=== PATIENT | male | born 1935 | race Caucasian/White ===

== ENCOUNTER 2024-09-20 09:36 | Emergency (ER) | payer OTHER, SELFPAY ==
[2024-09-20 09:39] VITALS: BP 151/67; PULSE 63; TEMP 36.6; O2SAT 96; BMI 30.9
--- NOTE | 2024-09-20 09:41 | XR_ITS ---
The [address] [address] Patient Name: ROSEMARY RIVERA MRN: [id number] date: 1935 Sex: M Assigned Patient Location: ED.MAIN Current Patient Location: ED.MAIN Accession/Order Number: [id number] Exam Date: 09/20/2024 10:11 Report Date: 09/20/2024 10:16 At the request of: JACK WILKINSON MD Procedure: XR lumbar spine 2-3V CLINICAL HISTORY: Patient fell yesterday landing on buttocks. Back and tailbone pain. LUMBAR SPINE - 2 views COMPARISON: None AP and lateral views were obtained. There is osteopenia. No acute lumbar compression fractures are identified. There is compression deformity at the superior endplate of T12. There is minor retropulsion at the posterior superior endplate of that vertebra. There is slight disc space narrowing at the lumbosacral junction. The remaining disc spaces are maintained. There are small endplate spurs. There is mild lower lumbar facet hypertrophy. The SI joints are intact. There is atherosclerotic plaque at the aorta and iliac arteries. XR/XR sacrum coccyx min 2V IMPRESSION: OSTEOPENIA AND MILD DEGENERATIVE CHANGES. T12 COMPRESSION FRACTURE. THERE ARE NO PRIORS TO DETERMINE CHRONICITY. CORRELATION IS THEREFORE RECOMMENDED. SACRUM AND COCCYX -3 VIEWS COMPARISON: None Lateral as well as AP views in upward and downward projection were obtained. There is osteopenia which slightly limits evaluation. No definite acute fracture or displacement is identified. The SI joints and sacral foramen appear intact. No soft tissue abnormalities are seen. IMPRESSION: OSTEOPENIA. NO ACUTE BONY INJURY. Impression dictated by: Pat Kraft M.D. 09/20/2024 10:16 AM Dictation Location: [place] [address] Electronically authenticated by: [id number] Y Date: 09/20/2024 10:16
--- NOTE | 2024-09-20 09:41 | XR_ITS ---
The [address] [address] Patient Name: ROSEMARY RIVERA MRN: [id number] date: 1935 Sex: M Assigned Patient Location: ED.MAIN Current Patient Location: ED.MAIN Accession/Order Number: [id number] Exam Date: 09/20/2024 10:11 Report Date: 09/20/2024 10:16 At the request of: JACK WILKINSON MD Procedure: XR lumbar spine 2-3V CLINICAL HISTORY: Patient fell yesterday landing on buttocks. Back and tailbone pain. LUMBAR SPINE - 2 views COMPARISON: None AP and lateral views were obtained. There is osteopenia. No acute lumbar compression fractures are identified. There is compression deformity at the superior endplate of T12. There is minor retropulsion at the posterior superior endplate of that vertebra. There is slight disc space narrowing at the lumbosacral junction. The remaining disc spaces are maintained. There are small endplate spurs. There is mild lower lumbar facet hypertrophy. The SI joints are intact. There is atherosclerotic plaque at the aorta and iliac arteries. XR/XR lumbar spine 2-3V IMPRESSION: OSTEOPENIA AND MILD DEGENERATIVE CHANGES. T12 COMPRESSION FRACTURE. THERE ARE NO PRIORS TO DETERMINE CHRONICITY. CORRELATION IS THEREFORE RECOMMENDED. SACRUM AND COCCYX -3 VIEWS COMPARISON: None Lateral as well as AP views in upward and downward projection were obtained. There is osteopenia which slightly limits evaluation. No definite acute fracture or displacement is identified. The SI joints and sacral foramen appear intact. No soft tissue abnormalities are seen. IMPRESSION: OSTEOPENIA. NO ACUTE BONY INJURY. Impression dictated by: Pat Kraft M.D. 09/20/2024 10:16 AM Dictation Location: [place] [address] Electronically authenticated by: [id number] Y Date: 09/20/2024 10:16
--- NOTE | 2024-09-20 09:41 | ECG_ITS ---
The [facility] Test Date: 2024-09-20 Pat Name: ROSEMARY RIVERA Department: Room: - Gender: Male Crime Scene Analyst: : 1935 Requested By: [id number] Order Number: [id number] Reading MD: FREDI NUÑEZ M.D. Measurements Intervals [place] Rate: 61 P: -[id number] MD: -[id number] QRS: -85 QRSD: 150 T: 55 QT: 432 QTc: 435 Interpretive Statements AV SEQUENTIAL OR DUAL CHAMBER ELECTRONIC PACEMAKER Abnormal ECG No previous ECG available for comparison Electronically Signed On 09-21-2024 18:21:58 EDT by FREDI NUÑEZ M.D.
--- NOTE | 2024-09-20 09:42 | ED.GENADUL1 ---
HPI HPI - General Adult General Chief complaint: Back Pain/Injury Stated complaint: BACK PAIN Time Seen by Provider: 09/20/24 09:38 History of Present Illness HPI narrative: 88-year-old male presents because he had trouble getting out of bed today. He called the paramedics and they brought him here. He states he could not get out of bed because of his lower back pain. He fell yesterday and landed on his buttocks. He fell because he was trying to kill a bug with his foot and lost his balance. He landed on his buttocks and not his back and he did not hit his head. He was able to get himself up yesterday and have a normal day. There was no subsequent injury. Related Data Home Medications ?Medication ?Instructions ?Recorded ?Confirmed acetaminophen 500 mg tablet 500 mg PO TID PRN fever or pain 09/20/24 09/20/24 (Tylenol Extra Strength) ascorbic acid (vitamin C) 500 mg 500 mg PO DAILY 09/20/24 09/20/24 capsule atorvastatin 80 mg tablet 40 mg PO DAILY 09/20/24 09/20/24 diclofenac sodium 1 % topical gel 2 g topical BID PRN pain in knees 09/20/24 09/20/24 (Arthritis Pain (diclofenac)) dorzolamide 22.3 mg-timolol 6.8 1 drp ophthalmic (eye) BID 09/20/24 09/20/24 mg/mL eye drops ferrous sulfate 325 mg (65 mg 325 mg PO DAILY 09/20/24 09/20/24 iron) tablet glipizide 10 mg tablet 20 mg PO BID 09/20/24 09/20/24 latanoprost 0.005 % eye drops, 1 drp ophthalmic (eye) DAILY 09/20/24 09/20/24 emulsion lidocaine HCl topical TID PRN feet pain 09/20/24 lisinopril 20 1 tab PO DAILY 09/20/24 09/20/24 mg-hydrochlorothiazide 12.5 mg tablet pioglitazone 45 mg tablet (Actos) 45 mg PO DAILY 09/20/24 09/20/24 tamsulosin 0.4 mg capsule (Flomax) 0.4 mg PO DAILY 09/20/24 09/20/24 Allergies Allergy/AdvReac Type Severity Reaction Status Date / Time No Known Drug Allergies Allergy Verified 09/20/24 09:43 Opioid HPI Opioid Management Most Recent Opioid Data: Last Pain Scale 7 Today, 09:39 Review of Systems ROS Narrative A ten point review of systems is negative except as noted above. PFSH PFSH Social History Little interest or pleasure in doing things: not at all Feeling down, depressed, or hopeless: not at all Exam Narrative Exam Narrative: Nurses note and vital signs reviewed and patient is not hypoxic. General: The patient appears in no apparent distress. Skin: Warm, dry, no pallor noted. There is no rash noted. Head: Normocephalic, atraumatic Eye: Normal conjunctiva, no drainage Ears, Nose, Mouth, and Throat: oral mucosa is moist. Nares patent. Cardiovascular: Regular Rate and Rhythm Respiratory: Patient is in no distress, no accessory muscle use, lungs are clear to auscultation, no wheezing, rales or rhonchi Back: No bruise or abrasion. He has no focal area of tenderness to palpation. GI: Soft and nontender Musculoskeletal: He has a few small bruises on his right arm but wrist elbow and shoulder have full range of motion and there is no tenderness. Neurological: A&O, normal speech Psychiatric: Cooperative Constitutional Vital Signs, click to edit/add: Last Vital Signs Temp 98 F 09/20/24 09:39 Pulse 63 09/20/24 09:39 Resp 18 09/20/24 09:39 BP 151/67 H 09/20/24 09:39 Pulse Ox 96 09/20/24 09:39 O2 Del Method Room Air 09/20/24 09:39 Course Vital Signs Vital signs: Vital Signs Temperature 98 F 09/20/24 09:39 Pulse Rate 63 09/20/24 09:39 Respiratory Rate 18 09/20/24 09:39 Blood Pressure 151/67 H 09/20/24 09:39 Pulse Oximetry 96 09/20/24 09:39 Oxygen Delivery Method Room Air 09/20/24 09:39 Temperature 98 F 09/20/24 09:39 Pulse Rate 63 09/20/24 09:39 Respiratory Rate 18 09/20/24 09:39 Blood Pressure 151/67 H 09/20/24 09:39 Pulse Oximetry 96 09/20/24 09:39 Oxygen Delivery Method Room Air 09/20/24 09:39 Medical Decision Making MDM Narrative Medical decision making narrative: T12 compression fracture is identified. No previous x-rays are available for comparison. He is having difficulty walking. I spoke to Dr. Dutta and we have agreed that the patient would be transferred to [facility] where they have orthopedics. Treatment diagnosis and disposition were discussed with the patient and his family and they are agreeable and the patient is stable for transfer. I spoke to Dr. Lujan, hospitalist at [facility], as well as their neurosurgeon and the patient is excepted there. Differential Diagnosis Differential Diagnosis: Contusion, fracture Lab Data Lab results reviewed: Yes I reviewed the patient's lab results Labs: Lab Results 09/20/24 Range/Units 10:12 WBC 8.6 (4.0-11.0) 10^3/uL RBC 4.01 L (4.70-6.10) 10^6/uL Hgb 12.4 L (14.0-18.0) g/dL Hct 37.7 L (42.0-54.0) % MCV 94.0 (80.0-94.0) fL MCH 30.9 (25.9-34.0) pg MCHC 32.9 (29.9-35.2) g/dL RDW 13.6 (11.0-15.0) % Plt Count 142 L (150-450) 10^3/uL MPV 10.7 (9.5-13.5) fL Neut % (Auto) 76.3 H (43.0-75.0) % Lymph % (Auto) 15.7 L (20.5-60.0) % [place]ois % (Auto) 6.9 (1.7-12.0) % Eos % (Auto) 0.5 L (0.9-7.0) % Baso % (Auto) 0.1 L (0.2-2.0) % Neut # (Auto) 6.6 H (1.4-6.5) 10^3/uL Lymph # (Auto) 1.4 (1.2-3.8) 10^3/uL [place] # (Auto) 0.6 (0.3-0.8) 10^3/uL Eos # (Auto) 0.0 (0.0-0.7) 10^3/uL Baso # (Auto) 0.0 (0.0-0.1) 10^3/uL Abs Immat Gran (auto) 0.04 H (0.00-0.03) 10^3/uL Imm/Tot Granulo (auto) 0.5 (0.0-0.5) % Sodium 139 (136-145) mmol/L Potassium 4.8 (3.5-5.1) mmol/L Chloride 103 (98-107) mmol/L Carbon Dioxide 24.2 (21.0-32.0) mmol/L Anion Gap 16.6 BUN 28.0 H (7.0-18.0) mg/dL Creatinine 1.26 (0.70-1.30) mg/dL Est GFR ( Amer) >60 (>=60 mL/min/1.73m^2) Est GFR (Non-Af Amer) 54 L (>=60 mL/min/1.73m^2) BUN/Creatinine Ratio 22.2 Glucose 164 H (74-106) mg/dL Calcium 9.0 (8.5-10.1) mg/dL Imaging Data Lumbar x-rays: Radiologist's impression: ITS Impressions Lumbar Spine X-Ray 09/20/24 09:41 IMPRESSION: OSTEOPENIA AND MILD DEGENERATIVE CHANGES. T12 COMPRESSION FRACTURE. THERE ARE NO PRIORS TO DETERMINE CHRONICITY. CORRELATION IS THEREFORE RECOMMENDED. SACRUM AND COCCYX -3 VIEWS COMPARISON: None Lateral as well as AP views in upward and downward projection were obtained. There is osteopenia which slightly limits evaluation. No definite acute fracture or displacement is identified. The SI joints and sacral foramen appear intact. No soft tissue abnormalities are seen. IMPRESSION: OSTEOPENIA. NO ACUTE BONY INJURY. Impression dictated by: Pat Kraft M.D. 09/20/2024 10:16 AM Dictation Location: [place] [address] Electronically authenticated by: [id number] Y Date: 09/20/2024 10:16 Sacrum and Coccyx X-Ray 09/20/24 09:41 IMPRESSION: OSTEOPENIA AND MILD DEGENERATIVE CHANGES. T12 COMPRESSION FRACTURE. THERE ARE NO PRIORS TO DETERMINE CHRONICITY. CORRELATION IS THEREFORE RECOMMENDED. SACRUM AND COCCYX -3 VIEWS COMPARISON: None Lateral as well as AP views in upward and downward projection were obtained. There is osteopenia which slightly limits evaluation. No definite acute fracture or displacement is identified. The SI joints and sacral foramen appear intact. No soft tissue abnormalities are seen. IMPRESSION: OSTEOPENIA. NO ACUTE BONY INJURY. Impression dictated by: Pat Kraft M.D. 09/20/2024 10:16 AM Dictation Location: [place] [address] Electronically authenticated by: [id number] Y Date: 09/20/2024 10:16 ECG Data Attestation: I personally reviewed and interpreted this ECG as follows: (EKG on my interpretation shows paced rhythm) Discharge Plan Discharge Chief Complaint: Back Pain/Injury Clinical Impression: T12 compression fracture, Unable to walk Patient Disposition: [facility] Time of Disposition Decision: 10:34 Discharge Location: [facility] Condition: Fair Mode of Transportation: EMS
[2024-09-20 10:16] VITALS: PULSE 60
[2024-09-20 10:18] LABS: Hematocrit 37.7 % (42.0-54.0); Hemoglobin 12.4 g/dL (14.0-18.0); Immature Granulocytes Abs Auto 0.04 10^3/uL (0.00-0.03); Immature Granulocytes Pct Auto 0.5 % (0.0-0.5); Lymphocytes Absolute Auto 1.4 10^3/uL (1.2-3.8); Mean Corpuscular HGB Conc 32.9 g/dL (29.9-35.2); Mean Corpuscular Hemoglobin 30.9 pg (25.9-34.0); Mean Corpuscular Volume 94.0 fL (80.0-94.0); Platelet Count 142 10^3/uL (150-450); Red Blood Count 4.01 10^6/uL (4.70-6.10); White Blood Count 8.6 10^3/uL (4.0-11.0)
[2024-09-20 10:30] LABS: Anion Gap 16.6; Blood Urea Nitrogen 28.0 mg/dL (7.0-18.0); Calcium 9.0 mg/dL (8.5-10.1); Carbon Dioxide 24.2 mmol/L (21.0-32.0); Chloride 103 mmol/L (98-107); Estimated GFR (African America >60 (>=60 mL/min/1.73m^2); Estimated GFR (Non-African Ame 54 (>=60 mL/min/1.73m^2); Glucose 164 mg/dL (74-106); Potassium 4.8 mmol/L (3.5-5.1); Sodium 139 mmol/L (136-145)
[2024-09-20 13:24] LABS: Glucose Urine UA >=1000 mg/dL (NEGATIVE)
[2024-09-20 13:35] LABS: Cast Seen? NONE SEEN #/LPF (NONE SEEN); Crystals Seen? None Seen #/HPF (None Seen)
== END 2024-09-20 14:05 | disposition short-term general hospital (02) ==
PROVIDERS: Emergency Provider Emergency Medicine; Family Provider Internal Medicine
DX: M48.54XA Collapsed vertebra, not elsewhere classified, thoracic region, initial encounter for fracture (principal); R26.2 Difficulty in walking, not elsewhere classified; M85.88 Other specified disorders of bone density and structure, other site
CPT/HCPCS: 36415; 72100; 72220; 80048; 81001; 85025; 93005; 99285